=== PATIENT | female | born 1955 | race Caucasian/White ===

== ENCOUNTER → 2016-06-18 17:08 | Outpatient (CLI) | payer MEDICARE, MEDICAID ==
[2013-10-20 09:15] VITALS: BMI 22.0
[~2016-06-18 17:08] MED LIST: ARICEPT5 MG PO; CELEXA20 MG PO; CLARITIN 10 MG10 MG PO; HYDROCODONE-APA1 TAB PO; LISINOPRIL10 MG PO; NORVASC2.5 MG PO; PRILOSEC20 MG PO
== END | disposition home or self-care (01) ==
LOC: D.MAMMO 13:15
DX: Z12.31 Encounter for screening mammogram for malignant neoplasm of breast (principal)

== ENCOUNTER → 2018-09-07 09:25 | Outpatient (CLI) | payer MEDICARE, MEDICAID ==
--- NOTE | 2018-09-09 13:47 | EC ---
PATIENT:JLUIS ORTEGA DATE OF SERVICE: 09/07/18 SEX: F MEDICAL RECORD: [id number] DATE OF : [birth year] LOCATION:[facility] AGE OF PATIENT: 63 ADMISSION DATE: 09/07/18 REFERRING PHYSICIAN: INTERPRETING PHYSICIAN: KERRI EVANS MD ECHOCARDIOGRAM REPORT ECHO CHARGES 4 ECHO COMPLETE Date: 09/07/18 CLINICAL DIAGNOSIS: PALPITATIONS/DYSPNEA/MURMUR H/O HTN ECHOCARDIOGRAPHIC MEASUREMENTS (adult normal given) AC root (d.<3.7cm) 2.6 cm LV Septum d (<1.2 cm> 1.1 cm Valve Excursion 1.9 cm LV Septum (systole) 1.5 cm Left Atria (s.<4.0cm> 3.9 cm LVPW d(<1.2cm) 1.2 cm RV (d.<2.3cm) 2.4 cm LVPW (sytole) 1.7 cm LV diastole(<5.6CM) 4.9 cm MV E-F(>70mm/sec) cm LV systole 2.9 cm LVOT Diameter 1.8 cm MV exc.(>10mm) cm Est.ejection fraction (50-75%) % DOPPLER: LVIT cm/sec A 96.0 cm/sec E 74.0 cm/sec LA cm/sec RVSP 22.0 mmHg LVOT 97.0 cm/sec AOP1/2T m/s Asc. Ao 180 cm/sec RVOT 50.0 cm/sec RA cm/sec PA 91.0 cm/sec AV Gradient Peak 13.0 mmHg AV Mean 6.2 mmHg AV Area 1.4 cm MV Gradient Peak 6.0 mmHg MV Mean 2.3 mmHg MV Area cm COMMENTS: OP - HC Landscaper: 1 MIRTHA MONTALVOOE Paper Making Machine Operator: 3 Dr. Sena TAPE# PACS Pericardial Effusion N DATE OF SERVICE: 09/07/2018 Adequate 2-D echo, color-flow and spectral Doppler, and M-mode. Borderline LVH. LV internal dimensions are normal. Wall motion is normal. EF is greater than 55%. Aortic valve is sclerotic. No evidence of stenosis on Doppler interrogation. Left atrium is normal at 3.9 cm. Mitral valve shows no prolapse. Trace MR. Right-sided chambers are grossly normal. Trace TR. TRANSINT:[id number] Voice Confirmation ID: [id number] DOCUMENT ID: [id number] ECHOCARDIOGRAM REPORT [id number] JLUIS ORTEGA,KERRI Bonilla MD at 1347 CC: [id number] DICTATION DATE: 09/08/18 1258 WATER TRUCK DRIVER: 09/08/18 1542 DEP CLI 09/07/18 [place] [id number] [place] [id number]
== END | disposition home or self-care (01) ==
LOC: D.HCCARDIO 09:25
DX: R01.1 Cardiac murmur, unspecified (principal)

== ENCOUNTER → 2018-10-11 12:03 | Outpatient (CLI) | payer MEDICARE, MEDICAID ==
[2013-10-20 09:15] VITALS: BMI 22.0
--- NOTE | 2018-10-12 14:37 | ST ---
PATIENT:JLUIS ORTEGA MEDICAL RECORD: [id number] SEX: F LOCATION:[facility] ORDER #: ADMISSION DATE: 10/11/18 AGE OF PATIENT: 63 REFERRING PHYSICIAN: INTERPRETING PHYSICIAN: TITO AMADOR MD DATE OF SERVICE: 10/11/2018 PROCEDURE: Nuclear stress test. INDICATION: Angina, abnormal ECG, hypertension, hyperlipidemia. TECHNIQUE: She was exercised on standard Alec protocol for 6 minutes achieving greater than 85% max target heart rate response with 33 mCi of sestamibi injected at peak stress, 11 mCi used previously for rest images. FINDINGS: Gated SPECT reveals preserved ejection fraction at 72% with good wall motion and thickening and brightening throughout all segments. SPECT imaging Cardiolite was used as myocardial fusion agent. There is homogeneous uptake throughout all segments at rest and stress with no evidence of inducible ischemia or previous infarction. OVERALL IMPRESSION: 1. This is a normal nuclear stress test with no evidence of inducible ischemia or previous infarction. 2. Gated SPECT reveals a preserved ejection fraction at 72%. In this patient with ongoing symptomatology, the current scan does not suggest the presence of hemodynamically significant coronary artery disease. Evaluate noncardiac etiology of chest pain. TRANSINT:[id number] Voice Confirmation ID: [id number] DOCUMENT ID: [id number] TITO AMADOR MD at 1437 CC: RON CRAIN [id number] DICTATION DATE: 10/11/18 1601 [employer] SUPERVISOR: 10/12/18 0555 [facility] CLI 10/11/18 [facility] [address] [place] [address]
== END | disposition home or self-care (01) ==
LOC: D.HCCARDIO 12:03
PROVIDERS: ATTEND Internal Medicine Interventional Cardiology
DX: I20.9 Angina pectoris, unspecified (principal)

== ENCOUNTER → 2020-07-11 23:25 | Outpatient (CLI) | payer MEDICARE, MEDICAID ==
[2013-10-20 09:15] VITALS: BMI 22.0
== END | disposition home or self-care (01) ==
LOC: D.MAMMO 06-27 10:45
PROVIDERS: ATTEND Clinical Nurse Specialist Family Health
DX: Z12.31 Encounter for screening mammogram for malignant neoplasm of breast (principal)